=== PATIENT | female | born 1955 | race Caucasian/White ===

== ENCOUNTER 2022-03-10 13:12 | Outpatient (CLI) | payer MEDICARE, SELFPAY ==
--- NOTE | ~2022-03-10 | US_ITS ---
EXAMINATION: US carotid duplex BI DATE: 03/10/2022 14:10 INDICATION: Left carotid bruit TECHNIQUE: Grayscale, color Doppler, and pulsed Doppler images of the cervical carotid arteries were obtained. The degree of vessel stenosis is placed in one of the following categories: normal, <50%, 5 0-69%, >=70% but less than near-occlusion, near-occlusion, or total occlusion. Note that percent sten osis relative to normal distal artery lumen diameter is indirectly measured from velocity measurement s as described by Mario, et al. Radiology 2003; 229:340-346. Notes: Normal: Peak systolic velocity <125 centimeters/sec and no plaque <50%. Peak systolic velocity <125 ( EDV <40; ICA/CCA PSV ratio <2.0; used these factors only a tandem lesions or low cardiac output or co ntralateral disease) 50-69 %: PSV 125-230 (EDV 40-100; ratio 2-4) >= 70% but less than near occlusion: PSV greater than 230 (EDV > 100; ratio> 4.0) Near Occlusion: PSV that is variable; markedly narrowed lumen Occlusion: Absent flow on color/spectral Doppler and no lumen on oliveros scale. COMPARISON: Ultrasound dated 06/27/2010. FINDINGS: RIGHT: The right common carotid artery (CCA) peak systolic velocity (PSV) is 73 cm/s. The right internal car otid artery (ICA) PSV is 65 cm/s. The right ICA end-diastolic velocity (EDV) is 24 cm/s. The right IC A/CCA PSV ratio is 0.9. The external carotid artery (ECA) PSV is 61 cm/s. There is antegrade flow in the right vertebral artery. LEFT: The left CCA PSV is 73 cm/s. The left ICA PSV is 57 cm/s. The left ICA EDV is 22 cm/s. The left ICA/C CA PSV ratio is 0.8. The ECA PSV is 53 cm/s. There is antegrade flow in the left vertebral artery. IMPRESSION: 1. Less than 50% stenosis in the right internal carotid artery by sonographic criteria. 2. Less than 50% stenosis in the left internal carotid artery by sonographic criteria. Reviewed, dictated and finalized at location A. TRIMMER IMPRESSION: 1. Less than 50% stenosis in the right internal carotid artery by sonographic zay kaufman. 2. Less than 50% stenosis in the left internal carotid artery by sonographic orestes mccauley.
== END 2022-03-10 13:13 | disposition home or self-care (01) ==
PROVIDERS: PCP Family Medicine; Visit Provider Internal Medicine Cardiovascular Disease
DX: R09.89 Other specified symptoms and signs involving the circulatory and respiratory systems (principal); I65.23 Occlusion and stenosis of bilateral carotid arteries
CPT/HCPCS: 93880

== ENCOUNTER 2022-03-28 10:42 | Outpatient (CLI) | payer MEDICARE, SELFPAY ==
[2022-03-28 21:01] LABS: Thyroid Stimulating Hormone Reflex 0.458 uIU/mL (0.465-4.68)
[2022-03-28 21:09] LABS: Alanine Aminotransferase 25 U/L (6-35); Albumin Level 4.3 g/dL (3.5-5.1); Alkaline Phosphatase 123 U/L (38-126); Anion Gap 4 mmol/L (8-16); Aspartate Amino Transferase 36 U/L (14-36); Bilirubin,Total 0.5 mg/dL (0.2-1.3); Blood Urea Nitrogen 29 mg/dL (7-17); Calcium 9.1 mg/dL (8.4-10.2); Carbon Dioxide 28 mmol/L (22-30); Chloride 106 mmol/L (98-107); Cholesterol 154 mg/dL (0-200); Estimated Glomerular Filt Rate 35; Glucose 93 mg/dL (65-110); HDL Direct 59 mg/dL; Potassium 4.3 mmol/L (3.4-5.0); Sodium 138 mmol/L (137-145); Triglycerides 51 mg/dL (<150)
[2022-03-28 21:19] LABS: LDL Cholesterol Direct 61 mg/dL
[2022-03-28 21:47] LABS: Free T4 Free Thyroxine Reflex 1.88 ng/dL (0.78-2.19)
[2022-03-28 22:54] LABS: Total Triiodothyronine (T3) 0.96 NG/ML (0.97-1.69)
== END 2022-03-28 10:43 | disposition home or self-care (01) ==
PROVIDERS: PCP Family Medicine; Visit Provider Family Medicine
DX: E78.5 Hyperlipidemia, unspecified (principal); I10 Essential (primary) hypertension; E03.9 Hypothyroidism, unspecified
CPT/HCPCS: 36415; 80053; 80061; 84439; 84443; 84480

== ENCOUNTER 2022-05-31 10:05 | Emergency (ER) | payer MEDICARE, SELFPAY ==
--- NOTE | ~2022-05-31 | CT_ITS ---
EXAMINATION:CT diagnostic chest wo con DATE: 05/31/2022 12:22 INDICATION: Abnormal chest radiograph. TECHNIQUE: Computed tomography (CT) of the chest was performed without intravenous contrast. Automate d exposure control and iterative reconstruction technique were employed. The dose-length product (DLP ) was 158.10 mGy-cm. 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 There is a trace right pleural effusion. T he heart size is normal. There are coronary artery calcifications. No pericardial effusion. There is a left internal jugular port with tip at superior cavoatrial junction. There is a right breast implan t. There are changes of left breast reconstruction. There are changes of right partial right hepatect beverly. There is a 1.5 cm cyst in left hepatic lobe. Calcifications in the spleen are consistent with ol d granulomatous disease. 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 There are old bilateral rib fractures. There is m ild thoracic spondylosis. There is mild chronic height loss of multiple vertebral bodies. IMPRESSION: 1. Multifocal scarring in the lungs, worst in left upper lobe. No evidence of malignancy. Reviewed, dictated and finalized at location A. CAL OFFICE ADMINISTRATOR IMPRESSION: 1. Multifocal scarring in the lungs, worst in left upper lobe. No evidence of m alignancy.
--- NOTE | ~2022-05-31 | XR_ITS ---
XR chest 2V 05/31/2022 11:23 Indication: Covid infection. Procedure: 2 view chest Comparison: CT dated 03/03/2019 Findings: Portacatheter tip in the SVC. Borderline heart size. There is an irregular nodular density in the right upper thorax. Correlation with CT chest recommended. There is bibasilar infiltrates whic h may represent atelectasis/scarring or developing pneumonia. No significant effusion. The lungs are hyperinflated which is consistent with, but not diagnostic of chronic obstructive pulmonary disease. Impression: 1: Irregular nodular density right upper thorax. Follow-up CT chest recommended. 2: Irregular infiltrates of the mid and lower lungs which may represent atelectasis/scarring and/or p neumonia. Reviewed, dictated and finalized at location B. DECK SUPERVISOR Impression: 1: Irregular nodular density right upper thorax. Follow-up CT chest recommended . 2: Irregular infiltrates of the mid and lower lungs which may represent atelect asis/scarring and/or pneumonia.
[2022-05-31 10:32] VITALS: BP 128/71; PULSE 86; RESP 20; TEMP 37.4; O2SAT 97
--- NOTE | 2022-05-31 13:34 | ED.URI ---
HPI - URI/Sore Throat General Chief Complaint: Upper Respiratory Infection Stated Complaint: COVID+ Time Seen by Provider: 05/31/22 12:00 Source: patient Mode of arrival: ambulatory Limitations: no limitations History of Present Illness HPI Narrative: 66-year-old female presents today with complaints of shortness of breath that started last night. Patient states that she started yesterday with a little bit of a cough and body aches. Headache started last night relieved with Tylenol. Patient did test at home for COVID and was positive. Patient called her PCP today and let them know that she was COVID-positive and short of breath and he was instructed her to come here. Upon arrival patient is not tachypneic, no respiratory distress, no audible wheezing, patient with unlabored respirations and oxygen level 97 to 98% with talking and a mask on. Patient denies chest pain, nausea, vomiting, diarrhea, low-grade fevers at home. Related Data Home Medications Medication Instructions Recorded Confirmed fluticasone propionate 50 1 spray intranasal DAILY 03/12/19 11/30/21 mcg/actuation nasal spray,suspension (Allergy Relief (fluticasone)) loratadine 10 mg tablet 10 mg PO DAILY 03/12/19 11/30/21 atorvastatin 40 mg tablet 40 mg PO DAILY 03/23/21 11/30/21 carvedilol 25 mg tablet 25 mg PO BID 03/23/21 11/30/21 amlodipine 2.5 mg tablet 2.5 mg PO DAILY 03/28/22 aspirin 81 mg tablet,delayed 81 mg PO DAILY 03/28/22 release Allergies Allergy/AdvReac Type Severity Reaction Status Date / Time erythromycin base Allergy Mild SEVERE Verified 03/28/22 11:07 NAUSEA/DIARRHEA prochlorperazine Allergy Mild TONGUE Verified 03/28/22 11:07 SWELLS Penicillins Allergy Unknown RASH Verified 03/28/22 11:07 Review of Systems Review of Systems: CONSTITUTIONAL: Fever, chills. Denies sweats. ENT: Denies rhinorrhea, congestion, sore throat, or otalgia. CARDIOVASCULAR: Denies chest pain, palpitations, or edema. RESPIRATORY: Cough, dyspnea. GASTROINTESTINAL: Denies abdominal pain, nausea, vomiting, or diarrhea. GENITOURINARY: Denies dysuria or hematuria. SKIN: Denies rash or itching. MUSCULOSKELETAL: Denies back pain, joint pain, or myalgia. NEUROLOGIC: Headache. Denies numbness, dizziness, or weakness. PSYCHIATRIC: Denies anxiety or depression. [facility] Past Medical History Medical History Atrial fibrillation, currently in sinus rhythm Cancer, hepatocellular CKD (chronic kidney disease) stage 3, GFR 30-59 ml/min Depression, major, recurrent, mild Essential (primary) hypertension History of cancer chemotherapy Hypothyroidism, unspecified Multiple sclerosis Other and unspecified hyperlipidemia Family History Family History Father Family history of renal failure Social History Social History Smoking status: Former smoker Second hand tobacco smoke exposure: No Smoking end date: 04/02/85 Alcohol intake: current Drinks per week: 2 Alcohol use details: wine Substance use: never Substance use type: does not use Lack of Transportation: No Lack of Food: Never True Current Housing: I Have Housing Concerned About Future Housing: No Difficulty Paying Gas/Electric Bills: No Difficulty Paying for Meds: No Currently Unemployed: No Education: High School Diploma/GED Difficulty w/ Childcare or Family Care: No Occupation/Education: retired Gender identity (if verbalized by the patient): Female Exam Narrative: GENERAL: Well-appearing, well-nourished, and in no acute distress. HEAD: Normocephalic, atraumatic. EYES: PERRLA and EOMI. ENT: Nares clear, no rhinorrhea or epistaxis. Mucous membranes moist. Oropharynx without tonsillar hypertrophy exudate or other lesions. Bilateral TMs pearly oliveros nonbulging NECK: Supple. No adenopathy or masses.
[2022-05-31 13:42] VITALS: BP 131/78; PULSE 88; RESP 18; O2SAT 98
== END 2022-05-31 13:43 | disposition home or self-care (01) ==
PROVIDERS: Emergency Provider Nurse Practitioner Family; PCP Family Medicine
DX: U07.1 COVID-19 (principal); I12.9 Hypertensive chronic kidney disease with stage 1 through stage 4 chronic kidney disease, or unspecified chronic kidney disease; N18.30 Chronic kidney disease, stage 3 unspecified; E03.9 Hypothyroidism, unspecified; F32.9 Major depressive disorder, single episode, unspecified
CPT/HCPCS: 71046; 71250; 99284

== ENCOUNTER 2022-09-14 07:43 | Outpatient (CLI) | payer MEDICARE, SELFPAY ==
--- NOTE | ~2022-09-14 | DEXA_ITS ---
Bone Density Report Name: OLIVIA JOHNSON Age: 66 Sex: Female Ethnicity: White Date of : 1955 Indication: postmenopausal; screening for osteoporosis; height loss; cancer; hysterectomy; Referring Provider: OSMAN, RAYMOND Jones Study: Bone densitometry was performed. Exam Date: September 14, 2022 Accession number: [id number] Bone Density: Region BMD T-score Z-score Classification AP Spine(L2, L3, L4) 0.882 -1.8 0.2 Osteopenia Femoral Neck (Left) 0.582 -2.4 -0.7 Osteopenia Total Hip (Left) 0.683 -2.1 -0.7 Osteopenia Femoral Neck (Right) 0.598 -2.3 -0.6 Osteopenia Total Hip (Right) 0.721 -1.8 -0.4 Osteopenia Total Hip Mean 0.702 -2.0 -0.6 Osteopenia World Health Organization criteria for BMD impression classify patients as: Normal (T-score at or above -1.0), Osteopenia (T-score between -1.0 and -2.5), or Osteoporosis (T-score at or below -2.5). 10-year Fracture Risk(1): Major Osteoporotic Fracture 13% Hip Fracture 2.6% Reported Risk Factors: [place] (), Neck BMD=0.582, BMI=28.6 (1) FRAX(R) Version 3.08. Fracture probability calculated for an untreated patient. Fracture probability may be lower if the patient has received treatment. Clinical Information Provided by Patient: Has used the following medications: Vitamin D, Calcium Has the following medical conditions: Cancer, Hysterectomy Patient maximum height was 67 Menopause Age: 43 No regular weight bearing exercise Drinks caffeinated beverages Onset of menses at age 11 Number of children 2 Impression: The patient has low bone mass, based on the Left Femoral Neck T-score. The patient has an estimated ten-year risk of hip fracture of 2.6% and an estimated ten-year risk of major fracture of 13%, based on the WHO FRAX algorithm. Discussion: BONE DENSITY IS LOW AT ONE OR MORE SKELETAL SITES. This patient's lowest T-score is low at one or more skeletal sites. It meets the World Health Organization's (WHO) criteria for ?low bone mass? (T-score between -1.0 and -2.5). The patient's 10-year risk of fracture as calculated by FRAX is less than the threshold where pharmacological therapy is recommended by the National Osteoporosis Foundation (NOF). However, all treatment decisions require clinical judgment and consideration of individual patient factors, including patient preferences, comorbidities, previous drug use, risk factors not captured in the FRAX model (e.g., frailty, falls, vitamin D deficiency, increased bone turnover, interval significant decline in bone density) and possible under or overestimation of fracture risk by FRAX. The patient should follow a healthful lifestyle (good nutrition with adequate calcium and vitamin D, and appropriate weight-bearing exercise). Follow-Up: Consider repeating this study in 2 to 3 years to re
== END 2022-09-14 07:44 | disposition home or self-care (01) ==
LOC: ANHIMG 07:45
PROVIDERS: PCP Family Medicine; Visit Provider Family Medicine
DX: Z13.820 Encounter for screening for osteoporosis (principal); M85.9 Disorder of bone density and structure, unspecified; Z78.0 Asymptomatic menopausal state; Z90.710 Acquired absence of both cervix and uterus
CPT/HCPCS: 77080